=== PATIENT | female | born 1990 | race African-American/Black ===

== ENCOUNTER 2019-06-18 06:12 | Inpatient (IN) | payer BC ==
[~2019-06-18] VITALS: Ht 170.2 cm; Wt 60.8 kg
[2019-06-18] VITALS (11 sets, daily range): BP systolic 109–129; BP diastolic 46–79
[~2019-06-18 06:12] MED LIST: NKM
[2019-06-18] MEDS ORDERED: Vit D PO (07:08)
[2019-06-18] MEDS ORDERED: Omega 3 PO (07:09)
[2019-06-18] MEDS ORDERED: FERROUS SULFAT325 MG ORAL (07:10)
[2019-06-18] MEDS ORDERED: Ropivacaine 5mg/ml Vial 30ml INJ ONE (07:11)
[2019-06-18] MEDS ORDERED: Bupivacaine 0.5% Inj 30 ml vial INJ ONE (07:11)
[2019-06-18] MEDS ORDERED: Midazolam 2mg/2ml Inj ONE (07:15)
[2019-06-18] MEDS ORDERED: Morphine Sulfate 10mg/ml Inj ONE ×2 (07:15→09:57)
[2019-06-18] MEDS ORDERED: NS Irrig 1000ml IRRIG ONE ×2 (07:19→08:12)
[2019-06-18] MEDS ORDERED: Rocuronium Bromide 50mg/5ml Inj IV ONE (07:22)
[2019-06-18] MEDS ORDERED: LR 1000ml ONE (07:30)
[2019-06-18] MEDS ORDERED: Sterile Water For Irrig 2000ml IRRIG ONE (07:30)
[2019-06-18] MEDS ORDERED: Metoclopramide 10mg/2ml Inj IVP PRN (07:30)
[2019-06-18] MEDS ORDERED: NS Irrig 1000ml ONE (07:30)
[2019-06-18] MEDS ORDERED: Acetaminophen (Non formulary) 100 ML IV ONE (07:30)
--- NOTE | 2019-06-18 07:36 | Anethesia Preoperative Eval ---
Anesthesia Pre-op PMH/ROS General Date of Evaluation: Jun 18, 2019 Time of Evaluation: 07:30 Anesthesiologist: holden ASA Score: ASA 1 Mallampati Score Class I : Soft palate, uvula, fauces, pillars visible Class II: Soft palate, uvula, fauces visible Class III: Soft palate, base of uvula visible Class IV: Only hard plate visible Mallampati Classification: Class II Surgeon: Betty Diagnosis: Uterine Fibroids Surgical Procedure: Myomectomy Anesthesia History: none Family History: no anesthesia problems Allergies: Coded Allergies: No Known Allergies (Unverified , 06/17/19) Patient NPO?: Yes NPO Date: Jun 17, 2019 NPO Time: 2199 Past Medical History Cardiovascular: Denies: HTN, CAD, ME, valve dz, arrhythmia, other Pulmonary: Denies: asthma, COPD, MEDINA, other Gastrointestinal/Genitourinary: Denies: GERD, CRI, ESRD, other Neurologic/Psychiatric: Denies: dementia, CVA, depression/anxiety, TIA, other Endocrine: Denies: DM, hypothyroidism, steroids, other HEENT: Denies: cataract (L), cataract (R), glaucoma, CAMPO (L), CAMPO (R), other Hematology/Immune: Denies: anemia, DVT, bleeding disorder, other Musculoskeletal/Integumentary: Denies: OA, RA, DJD, DDD, edema, other PSxH Narrative: D&C in mar Anesthesia Pre-op Phys. Exam Physician Exam Last Vital Signs Date Time Temp Pulse Resp B/P (MAP) Pulse Ox O2 Delivery O2 Flow Rate FiO2 06/18/19 07:13 Room Air 06/18/19 06:47 98.6 80 18 124/77 (93) 100 Constitutional: NAD Neurologic: CN 2-12 intact Cardiovascular: RRR Respiratory: CTA Gastrointestinal: S/NT/ND Airway Exam Mallampati Classification 2 Mallampati Score: Class II MO: full ROM: full Dentures: no upper, no lower Anesthesia Pre-op A/P Labs Urine Test Test 06/18/19 06:25 Urine HCG, Qualitative Negative (NEGATIVE) Studies Pre-op Studies: EKG - SR Risk Assessment & Plan Assessment: Denies changes in health Plan: General Status Change Before Surgery: No Pre-Antibiotics Drug: ancef Given Within 1 Hr of Incision: Yes Time Given: 07:50 Anel Raymond NURSES' AIDE Jun 18, 2019 07:35
--- NOTE | 2019-06-18 07:49 | Pre-Procedure Note/Attestation ---
Pre-Procedure Note/Attestation Complete Prior to Procedure Planned Procedure: not applicable Procedure Narrative: Abdominal Myomectomy Indications for Procedure Pre-Operative Diagnosis: Large Uterine Myomas Attestation I attest that I discussed the nature of the procedure; its benefits; risks and complications; and alternatives (and the risks and benefits of such alternatives ), prior to the procedure, with the patient (or the patient's legal distribution sales representative). I attest that, if there was a reasonable possibility of needing a blood transfusion, the patient (or the patient's legal distribution sales representative) was given the [facility] standardized written summary, pursuant to the [place] Blood Safety Act ([place] Health and Safety Code # 1645, as amended). I attest that I re-evaluated the patient just prior to the surgery and that there has been no change in the patient's H&P, except as documented below: NONE Bhupendra Hernández MD Jun 18, 2019 07:49
[2019-06-18] MEDS ORDERED: Lidocaine 1% MPF 10mg/ml 5ml ONE (08:24)
[2019-06-18] MEDS ORDERED: Metoclopramide 10mg/2ml Inj ONE (08:24)
[2019-06-18] MEDS ORDERED: Dexamethasone 4mg/ml vial ONE (08:24)
[2019-06-18] MEDS ORDERED: Propofol 200mg/20ml IV ONE ×2 (08:24→08:34)
[2019-06-18] MEDS ORDERED: Glycopyrrolate 0.2mg/ml 1ml Vial ONE (09:05)
[2019-06-18] MEDS ORDERED: Neostigmine 1mg/ml 10ml Inj ONE (09:05)
[2019-06-18] MEDS ORDERED: Ketorolac 30mg Inj ONE (09:48)
[2019-06-18] MEDS ORDERED: Ketorolac 30mg Inj IM PRN (10:15)
--- NOTE | 2019-06-18 10:29 | Immediate Post-Op Evaluation ---
Immediate Post-Op Evalulation Immediate Post-Op Evalulation Procedure: open myomectomy Date of Evaluation: Jun 18, 2019 Time of Evaluation: 10:28 IV Fluids: 1200 Blood Products: 0 Estimated Blood Loss: 350 Urinary Output: 150 Blood Pressure Systolic: 126 Blood Pressure Diastolic: 46 Pulse Rate: 81 Respiratory Rate: 14 O2 Sat by Pulse Oximetry: 100 Temperature (Fahrenheit): 98.4 Nausea: No Vomiting: No Complications none Patient Status: awake, reacts, patent Hydration Status: adequate Drug: ancef Given Within 1 Hr of Incision: Yes Time Given: 07:50 Anel Raymond CRNA Jun 18, 2019 10:29
--- NOTE | 2019-06-18 10:29 | Brief Operative Note ---
Immediate Post Operative Note Operative Note Pre-op Diagnosis: Large Uterine Myomas Procedure: Extensive Myomectomy Post-op Diagnosis: Same Post-op Diagnosis: same as pre-op Findings: consistent w/pre-op dx studies Surgeon: Bhupendra Hernández MD Senior Tableau Developer: Tamiko Javier MD Anesthesiologist: Rukhsana Garcia CRNA Anesthesia: general Specimen: yes - Multiple Myomas Complications: none Condition: stable Fluids: LRD5 Estimated Blood Loss: volume - 350 ml Drains: none Implant(s) used?: No Bhupendra Hernández MD Jun 18, 2019 10:29
[2019-06-18] MEDS: Hydromorphone 0.5mg/0.5ml inj IVP PRN ×4 (10:32→20:47)
--- NOTE | 2019-06-18 12:00 | NUR ---
NURSE NOTES: received report from Katharina NAQVI, pt a/a/o x4 laying in bed with no signs of distress or other issues at this time. surgical dressing dry an intact. pt has a pedi pad since she is on her period. IV on the left hand gauge#20 running NS@125ml/hr. RN will review orders and will carry them on. call light within reach, bed in lowest position, side rales up x2. i will f/u as needed.
[2019-06-18] MEDS ORDERED: HYDROcodone/Acetamin 5/325 tab ORAL PRN (12:47)
[2019-06-18] MEDS ORDERED: Milk of Magnesia 30ml Ud ORAL PRN (12:48)
[2019-06-18] MEDS: HYDROcodone/Acetamin 10/325 tab ORAL PRN (12:53)
[2019-06-18] MEDS: Docusate 100mg cap ORAL SCH (17:38)
--- NOTE | 2019-06-18 19:38 | NUR ---
HAND-OFF: Report given to Mayra NAQVI. pt in stable condition. total Nuñez cath:1200ml
--- NOTE | 2019-06-18 23:24 | NUR ---
NURSE NOTE: Pt is A/Ox4 with stable VS. Orders reviewed and physical assessments completed. Pt ambulates to bathroom with RN assist. Mikayla-care provided PRN as pt is on her menstrual cycle. SCD's are in use. Call van is within reach. Will continue to monitor.
[2019-06-19 00:21] VITALS: BP 100/66
[2019-06-19] MEDS: HYDROcodone/Acetamin 10/325 tab ORAL PRN ×2 (03:03→06:57)
[2019-06-19 04:30] VITALS: BP 94/54
[2019-06-19 06:43] LABS: BASOPHILS % (AUTO) 0.4 % (0.0-2.0); EOSINOPHILS % (AUTO) 0.4 % (0.0-3.0); HEMOGLOBIN 9.4 G/DL (12.0-16.0); LYMPHOCYTES % (AUTO) 22.3 % (20.0-45.0); MEAN CORPUSCULAR VOLUME 86 FL (80-99); NEUTROPHILS % (AUTO) 67.9 % (45.0-75.0); PLATELET COUNT 225 K/UL (150-450); RED BLOOD COUNT 3.49 M/UL (4.20-5.40); RED CELL DISTRIBUTION WIDTH 20.2 % (11.6-14.8); WHITE BLOOD COUNT 11.7 K/UL (4.8-10.8)
--- NOTE | 2019-06-19 07:08 | NUR ---
HAND-OFF: Report given to
[2019-06-19 07:18] LABS: ANION GAP 5 mmol/L (5-15); BLOOD UREA NITROGEN 5 mg/dL (7-18); CALCIUM 7.7 MG/DL (8.5-10.1); CARBON DIOXIDE 26 MMOL/L (21-32); CHLORIDE 111 MMOL/L (98-107); CREATININE 0.8 MG/DL (0.55-1.30); SODIUM 142 MMOL/L (136-145)
--- NOTE | 2019-06-19 07:50 | NUR ---
NURSE NOTES: received report from Mayra NAQVI. pt a/a/o x4 laying in bed with no signs of distress however she complained of pain in surgical site as well as nausea. surgical dressing dry and intact. IV on the left hand gauge#20 running NS@125ml/hr. call light within reach, bed in lowest position. side rales upx2. I will f/u as needed.
[2019-06-19 08:00] VITALS: BP 113/76
[2019-06-19] MEDS: Docusate 100mg cap ORAL SCH ×2 (08:07→17:01)
--- NOTE | 2019-06-19 11:14 | NUR ---
*-* NO INSURANCE INFORMATION IN THE BAR UNABLE TO SEND CLINICALS OR REVIEWS *-*
--- NOTE | 2019-06-19 11:15 | 48 Hour Post Anesthesia Eval ---
Post Anesthesia Evaluation Procedure: open myomectomy Date of Evaluation: Jun 19, 2019 Time of Evaluation: 11:05 Blood Pressure Systolic: 113 0: 76 Pulse Rate: 84 Respiratory Rate: 20 Temperature (Fahrenheit): 98 O2 Sat by Pulse Oximetry: 98 Airway: patent Nausea: No Vomiting: No Hydration Status: adequate Cardiopulmonary Status: at baseline Mental Status/LOC: patient returned to baseline Post-Anesthesia Complications: 0 Follow-up care needed: N/A - further care as per priry Marie Andrade MD Jun 19, 2019 11:14
--- NOTE | 2019-06-19 11:54 | Operative Note - Dictated ---
DATE OF OPERATION: 06/18/2019 PREOPERATIVE DIAGNOSIS: Large uterine myoma. POSTOPERATIVE DIAGNOSIS: Large uterine myoma. PROCEDURE PERFORMED: Extensive abdominal myomectomy. FINDINGS: Consistent with preop diagnosis with very large multiple uterine fibroids. SURGEON: Bhupendra Hernández M.D. WEB CONTENT COORDINATOR: Tamiok Javier M.D. ANESTHESIOLOGIST: Anel Raymond M.D. ANESTHESIA: General. PROCEDURE IN DETAIL: After all the appropriate consents were signed, the patient was brought to the operating room and placed on the table in supine position. General endotracheal anesthesia was induced without complication. The patient was then placed in a dorsal lithotomy position. Perineum, vagina, and abdomen were prepped and draped in the usual fashion for the procedure. The patient was then examined under anesthesia. The cervix was identified and the uterus was palpated to be approximately at the level of the umbilicus. At this time, a Pfannenstiel incision was made, which was carried through the subcutaneous tissue until the fascia was nicked. The fascial incision was then bilaterally to expose the rectus muscle and the rectus muscle was parted in the midline after being reflected both inferiorly and superiorly from the fascia. At this time, the uterus was entered sharply. The entire field was involved with a very large fibroid, which could really be barely palpated anteriorly and extended all the way to the fundus. At this time, the area on the uterus was identified. It was injected with vasopressin solution and incision was made. At this time, the fibroids were grasped one after another and gradually morcellated and removed. This procedure continued for approximately 1-1/2 hours until no other areas of fibroids could be identified. There was one fibroid on the right side anteriorly right near the tube on the right side, which was palpated. However, it was decided not to proceed with removing this fibroid as it may distort the tube and may get inoperable. At this time once all the fibroids were removed, it was decided to proceed with closure of the uterine defect. Multiple layers of 0 Vicryl suture were used to close initially the deep layers and then more superficial layers. The uterus was once again evaluated and the last layer was placed in the serosal area to completely approximate the closure. Complete hemostasis was noted in the area of the closure. Once this was completed, the abdomen was thoroughly irrigated with saline solution. A 2-0 Vicryl suture was then used to approximate the peritoneum and 2-0 suture was used to approximate the rectus muscle in the midline. A 0 Vicryl suture was used to approximate the fascia in a running fashion. A 3-0 plain suture was used to approximate the subcutaneous layer. Stainless steel piter were placed and the patient was awakened from general anesthesia, placed in the supine position, and transferred to the recovery room in excellent condition. She tolerated the procedure very well. Bhupendra Bradley Hernández DR: BRUNILDA JOB#: [id number] CC:
--- NOTE | 2019-06-19 13:00 | NUR ---
CASE MANAGEMENT:REVIEW 28 YR OLD FEMALE HERE FOR ELECTIVE SURGERY SI: LARGE UTERINE MYOMAS IS: TO SURGERY FOR: EXTENSIVE MYOMECTOMY : TO MED/SURG POST OP 06/19/19 SI: POD #1 99.0 72 18 109/64 99% ON RA WBC+11.7 H/H-9.4/30.0 IS: IV TORADOL Q6HRS IVF@125/HR IV DILAUDID Q3HRS PRN : MED/SURG STATUS 3 EAST DCP: FROM HOME
[2019-06-19] MEDS: Ketorolac 30mg Inj IV SCH ×2 (14:11→19:53)
--- NOTE | 2019-06-19 16:15 | NUR ---
*-* INSURANCE *-* ALL CLINICALS AND REVIEWS HAVE BEEN FAXED TO: [facility]IMA GIANG:[employer] P: [phone] F: [phone] REF# [id number]
--- NOTE | 2019-06-19 19:30 | NUR ---
HAND-OFF: Report given to Mayra NAQVI, pt in stable condition. - during my shift pt was able to ambulate to the bathroom.
--- NOTE | 2019-06-19 23:26 | NUR ---
NURSE NOTE: Pt is A/Ox4 with stable VS. orders reviewed and physical assessment completed. Call van is within reach, will continue to monitor.
[2019-06-20] MEDS: Ketorolac 30mg Inj IV SCH ×3 (02:05→14:43)
[2019-06-20 04:20] VITALS: BP 106/69
--- NOTE | 2019-06-20 08:20 | NUR ---
HAND-OFF: Report given to
--- NOTE | 2019-06-20 08:22 | NUR ---
HAND-OFF: Correction Report given to Marian.
[2019-06-20] MEDS: Docusate 100mg cap ORAL SCH ×2 (10:16→18:52)
--- NOTE | 2019-06-20 16:00 | NUR ---
NURSE NOTES: Seen and examined by Dr. Javier. With orders for regular diet. IV line D/C and removed, no s/s of infection. For possible D/C tomorrow afternoon.
--- NOTE | 2019-06-20 16:18 | General Progress Note ---
Progress Note Progress Note GYNECOLOGY PROGRESS NOTE S: Patient doing well. Pain improved and well controlled on Toradol. She has ambulated, voided, and her pain is well controlled. Bleeding moderate (she states that she is due for her period). No other issues. Denies lightheadedness , dizziness, nausea, vomiting, chest pain, or shortness of breath. No fever or chills. O: Vitals reviewed, WNL Exam: Gen: NAD HEENT: OP clear, MMM Chest: Equal rise CV: RRR Pulm: No increased work of breathing Abd: Soft, appropriately tender, nondistended Perineum: Some blood and small clot on pad, no excessive bleeding Ext: No calf TTP Labs Test 06/18/19 06:25 06/19/19 05:20 Urine HCG, Qualitative Negative (NEGATIVE) White Blood Count 11.7 K/UL (4.8-10.8) Red Blood Count 3.49 M/UL (4.20-5.40) Hemoglobin 9.4 G/DL (12.0-16.0) Hematocrit 30.0 % (37.0-47.0) Mean Corpuscular Volume 86 FL (80-99) Mean Corpuscular Hemoglobin 26.9 PG (27.0-31.0) Mean Corpuscular Hemoglobin Concent 31.3 G/DL (32.0-36.0) Red Cell Distribution Width 20.2 % (11.6-14.8) Platelet Count 225 K/UL (150-450) Mean Platelet Volume 7.7 FL (6.5-10.1) Neutrophils (%) (Auto) 67.9 % (45.0-75.0) Lymphocytes (%) (Auto) 22.3 % (20.0-45.0) Monocytes (%) (Auto) 9.0 % (1.0-10.0) Eosinophils (%) (Auto) 0.4 % (0.0-3.0) Basophils (%) (Auto) 0.4 % (0.0-2.0) Sodium Level 142 MMOL/L (136-145) Potassium Level 4.0 MMOL/L (3.5-5.1) Chloride Level 111 MMOL/L (98-107) Carbon Dioxide Level 26 MMOL/L (21-32) Anion Gap 5 mmol/L (5-15) Blood Urea Nitrogen 5 mg/dL (7-18) Creatinine 0.8 MG/DL (0.55-1.30) Estimat Glomerular Filtration Rate > 60 mL/min (>60) Glucose Level 86 MG/DL (74-106) Calcium Level 7.7 MG/DL (8.5-10.1) A/P: 28yo s/p abdominal myomectomy, POD#2, doing well - Advance to regular diet - D/C IV fluids and remove IV - D/C Toradol and transition to Ibuprofen 600mg q6h scheduled starting this evening - [place] prn, stop Dilaudid - If patient doing well on PO pain regimen by tomorrow afternoon, OK for discharge home - Will ensure all Rx will be provided to nursing staff prior to discharge - Patient to follow up with me or Dr. Hernández on Saturday or Saturday for staple removal Signed: MD Concepcion Solano Carla M.D. Jun 20, 2019 16:18
--- NOTE | 2019-06-20 20:04 | NUR ---
HAND-OFF: Report given to Nadia.
[2019-06-20] MEDS: HYDROcodone/Acetamin 10/325 tab ORAL PRN (20:18)
--- NOTE | 2019-06-20 23:01 | NUR ---
NURSES NOTE: Received pt in bed, alert and oriented x4. Patient is able to communicate all needs. Family at bed side. VS WNL. No outward s/s of distress. Breathing pattern is even and unlabored on RA. Surgical site, lower abdomen, is open to air with piter. Patient states pain 7/10 in lower abdomen. Sheldon 10-325mg given at apprx 2030- effective. Patient has menses- blood flow is normal. No IV site noted. PO meds only. Patient set to be discharged 06/[address] Lizarraga at lowest level, call light within reach, pt will cont to be monitored.
--- NOTE | 2019-06-21 08:00 | NUR ---
NURSE NOTES: Received report from Debbie NAQVI. pt a/a/ox 4 laying in bed with no signs of distress or other issues at this time. surgical incision c/d/i open to air. Iv on the left hand gauge #20 heplock. pt able to ambulate to the restroom with steady gait. call light within reach, bed in lowest position. side rales up x2. I will f/u as needed.
--- NOTE | 2019-06-21 08:13 | NUR ---
HAND OFF: Report given to DONYA Arevalo. Pt left in stable condition. Possible discharge endorsed.
[2019-06-21] MEDS: Docusate 100mg cap ORAL SCH (09:54)
--- NOTE | 2019-06-21 11:45 | NUR ---
HAND-OFF: Report given to Niall NAQVI, pt in stable condition.
--- NOTE | 2019-06-21 13:06 | NUR ---
NURSE NOTES: Received pt in bed, AAO x 4. Room air. No c/o of pain/distress. IV on L hand 20g noted. Side rails x2. Bed in the lowest, locked, and Addendum: 06/21/19 at 1308 by TED RUBALCAVA RN Received pt in bed, AAO x 4. Room air. No c/o of pain/distress. IV on L hand 20g noted. Side rails x2. Bed in the lowest and locked. Call light within reach. Will continue to monitor
[2019-06-21] MEDS ORDERED: NORCO 5-325 TA1 EACH ORAL (16:43)
[2019-06-21] MEDS ORDERED: IBUPROFEN600 MG ORAL (16:45)
[2019-06-21] MEDS ORDERED: COLACE100 MG ORAL (16:45)
--- NOTE | 2019-06-21 17:29 | NUR ---
NURSE NOTES: Patient was discharged to home via private vehicle accompanied by patient's friend. Escorted pt down to first floor. ID and IV was removed. No s/s of infection on the removal site. Skin intact. Discharge instructions and prescriptions were given. Belongings were accounted for and given to patient.
--- NOTE | 2019-06-22 10:15 | Discharge Summary ---
Discharge Summary Hospital Course Date of Admission Jun 18, 2019 at 11:57 Date of Discharge Jun 21, 2019 at 17:42 Admitting Diagnosis Large multiple uterine fibroids. Reason for Hospitalization: elective surgery HPI Xiomara Chance is a 28 year old female who was admitted on Jun 18, 2019 at 11: 57 for Uterine Fibroids. Patient was admitted for elective surgery. Procedures s/p 06/18/[address] Rabia Hernández Extensive abdominal myomectomy. Hospital Course status post surgery 06/18- abdominal myomectomy course of recovery uneventful initially IV fluids s/p perioperative antibiotics incision remained clean , dry and intact pain management was addressed pain was controlled patient was transitioned to oral analgesics patient remained hemodynamically stable use of incentive spirometry was encouraged while in the bed slowly started on diet whn bowel fucntion returned and was able to tolerate diet IV fluids discontinued antiemetics were on board as needed voided freely bowel regimen instituted patient was stable for discharge discharge instructions provided follow up with surgeon in the office as advised FINAL DIAGNOSES Large uterine myoma s/p Extensive abdominal myomectomy. Discharge Medications Continued Medications: Docusate Sodium* (Colace*) 100 Mg Capsule 100 MG ORAL TWICE A DAY, CAP (This prescription has been renewed) Hydrocodone Bit/Acetaminophen 5-325* ([place] 5-325*) 1 Each Tablet 1 TAB ORAL Q4H PRN for For Pain, #10 TAB 0 Refills (This prescription has been renewed) Ibuprofen* (Motrin*) 600 Mg Tablet 600 MG ORAL Q6H PRN for For Pain, #30 TAB 0 Refills (This prescription has been renewed) Discharge Condition Upon Discharge: stable Discharge Disposition Patient was discharged home Discharge Instructions Discharge Instructions Special Instructions I have been assigned to complete a D/C Summary on this account. I was not involved in the patient management Elsi Yoder NP Jun 22, 2019 10:15
--- NOTE | 2019-06-22 13:13 | NUR ---
*-* INSURANCE *-* DISCHARGE SILVIA HAS BEEN FAXED TO: [facility]IMA GIANG:[employer] P: [phone] F: [phone] REF# [id number]
== END 2019-06-21 17:42 | disposition home or self-care (01) | DRG 743 ==
LOC: SUR 06:12 → 3E 11:57 → OBSVTOIN 11:57
PROC: 0UB90ZZ Excision of Uterus, Open Approach (ICD-10-PCS; principal; 2019-06-18 07:30)
DX: D25.9 Leiomyoma of uterus, unspecified (principal); N92.0 Excessive and frequent menstruation with regular cycle; N94.6 Dysmenorrhea, unspecified; N94.10 Unspecified dyspareunia
CPT/HCPCS: 36415; 51702; 80048; 81025; 85025; 86850; 86900; 86901; 87081; 94003; 94150; C8957; J2250; J2405; J2710; J2765; J7030